=== PATIENT | female | born 1965 | race African-American/Black ===

== ENCOUNTER 2017-01-10 08:08 | Emergency (ER) | payer MEDICARE ==
[~2017-01-10] VITALS: Ht 185.4 cm; Wt 132.4 kg
[2017-01-10 08:11] VITALS: BP 136/75
--- NOTE | 2017-01-10 08:21 | NUR ---
Patient ambulated to bed 6. RN evaluating patient at bedside.
--- NOTE | 2017-01-10 08:22 | NUR ---
51/F BIB SELF C/o sorethroat x 3 days, with persistant dry cough & unable to sleep 2 to coughing subjective f/c, headache, full clear speech, no drooling noted. hx OF htn, dm, right knee pain. DENIES N/V/D; SKIN IS PINK/WARM/DRY; AAOX4 WITH EVEN ANDL KNEE PAIN ,UNSTEADY GAIT ;AMB WITH CANE; LUNGS CLEAR BL; HR EVEN AND REGULAR; PT DENIES ANY FEVER, CP, SOB AT THIS TIME; PATIENT STATES PAIN OF 9/10 AT THIS TIME; VSS; PATIENT POSITIONED FOR COMFORT; HOB ELEVATED; BEDRAILS UP X2; BED DOWN. ER MD MADE AWARE OF PT STATUS.
--- NOTE | 2017-01-10 08:32 | NUR ---
ER MD DR OSWALD EVALUATING PT AT BEDSIDE.
[2017-01-10] MEDS ORDERED: ACETAMIN/CODEINE 120/12MG-5ML 5 ML UDC PO ONE (08:35)
--- NOTE | 2017-01-10 08:39 | NUR ---
SORE THROAT, HEADACHE, R KNEE PAIN 9/. ADMINISTERED MED ORDER.
--- NOTE | 2017-01-10 08:41 | NUR ---
Note undone in EDM - 01/10/17 at 0846 by [email or web address] 51/F BIB SELF C/o sorethroat x 3 days, with persistant dry cough & unable to sleep 2 to coughing subjective f/c, headache, full clear speech, no drooling noted. hx OF htn, dm, right knee pain. DENIES N/V/D; SKIN IS PINK/WARM/DRY; AAOX4 WITH EVEN ANDL KNEE PAIN ,UNSTEADY GAIT ;AMB WITH CANE; LUNGS CLEAR BL; HR EVEN AND REGULAR; PT DENIES ANY FEVER, CP, SOB AT THIS TIME; PATIENT STATES PAIN OF 9/10 AT THIS TIME; VSS; PATIENT POSITIONED FOR COMFORT; HOB ELEVATED; BEDRAILS UP X2; BED DOWN. ER MD MADE AWARE OF PT STATUS.
--- NOTE | 2017-01-10 09:05 | NUR ---
PAIN /10 AT THIS TIME. Addendum: 01/10/17 at 0906 by [email or web address] DAVIDSON OSWALD REEVALUATING PT AT BEDSIDE.
[2017-01-10 09:11] VITALS: BP 130/57
--- NOTE | 2017-01-10 09:11 | NUR ---
Patient discharged with BP130/57; MD AWARE. Written and verbal after care instructions given and explained. Patient alert, oriented and verbalized understanding of instructions. Ambulatory with CANE. All questions addressed prior to discharge. ID band removed. Patient advised to follow up with PMD. Rx of LORSATAN, NORCO, GLIPIZIDE & NIFEDIPINE given. Patient educated on indication of medication including possible reaction and side effects. Opportunity to ask questions provided and answered.
== END 2017-01-10 09:11 | disposition home or self-care (01) ==
LOC: MED 08:08
DX: J02.9 Acute pharyngitis, unspecified (principal); I10 Essential (primary) hypertension; F17.210 Nicotine dependence, cigarettes, uncomplicated
CPT/HCPCS: 99283